=== PATIENT | female | born 1975 | race Caucasian/White ===

== ENCOUNTER 2021-12-14 06:46 | Inpatient (IN) | payer OTHER ==
[~2021-12-14] VITALS: Ht 162.6 cm; Wt 193.4 kg
[2021-12-14] MEDS ORDERED: ACETAMINOPHEN 500 MG TAB PO ONE ×3 (07:30→07:34)
[2021-12-14 07:42] LABS: BUN/Creatinine Ratio 25.9; Calcium 8.9 mg/dL (8.5-10.1); Potassium 3.8 mmol/L (3.5-5.1)
[2021-12-14 07:44] LABS: Basophils # (auto) 0 10 ^3/uL (0-0.2); Basophils % (auto) 0.5 % (0.0-2.0); Eosinophils # (auto) 0.3 10 ^3/uL (0-0.8); Eosinophils % (auto) 3.1 % (0.0-7.0); Hematocrit 36.2 % (36.0-46.0); Lymphocytes # (auto) 2.6 10 ^3/uL (0.4-5.4); Lymphocytes % (auto) 28.1 % (10.0-50.0); Mean Corpuscular Hgb Conc. 35.9 g/dL (32.0-36.0); Mean Corpuscular Volume 83.5 fL (80.0-100.0); Monocytes # (auto) 0.7 10 ^3/uL (0-1.3); Monocytes % (auto) 7.5 % (0.0-12.0); Neutrophils # (auto) 5.6 10 ^3/uL (1.6-8.6); Neutrophils % (auto) 60.8 % (37.0-80.0); Nucleated Red Blood Cells % 0.1 %; Red Blood Cells 4.34 10^6/uL (4.0-5.20); Red Cell Distribution Width 13.2 % (11.8-14.3); White Blood Cell 9.3 10^3/uL (4.4-10.8)
[2021-12-14 08:03] LABS: Urine Bacteria NONE SEEN /hpf (None Seen); Urine Blood 3+ /uL (Negative); Urine Mucus FEW (None Seen); Urine Specific Gravity 1.025 (1.001-1.035); Urine WBC 20 /hpf (0 - 5)
[2021-12-14 08:25] LABS: INR 0.96 (0.9-1.15)
[2021-12-14] MEDS ORDERED: SODIUM CHLORIDE 0.9% 1,000 ML IV ONE (10:15)
[2021-12-14] MEDS ORDERED: cefTRIAXone 1GM/50ML D5W 50 ML IV ONE ×2 (10:53→11:00)
[2021-12-14] MEDS ORDERED: ceFAZolin 1GM/50ML 50 ML IV ONE ×2 (12:11→13:00)
[2021-12-14] MEDS ORDERED: NITROGLYCERIN 0.4 MG SL TAB SL PRN (13:00)
[2021-12-14] MEDS ORDERED: ACETAMINOPHEN 500 MG TAB PO PRN (13:00)
[2021-12-14] MEDS ORDERED: MORPHINE SULFATE INJ 2 MG/ml SYRG IV PRN (13:00)
[2021-12-14] MEDS ORDERED: MEPERIDINE HCL (50 MG/ML) 1 ML VIAL ONE (13:06)
[2021-12-14] MEDS ORDERED: fentaNYL CITRATE 100 MCG/2 ML VL ONE ×2 (13:06→13:56)
[2021-12-14] MEDS ORDERED: MIDAZOLAM HCL 2MG/2ML 2ml VIAL (1mg/ml) ONE (13:06)
[2021-12-14] MEDS ORDERED: MIDAZOLAM HCL 2MG/2ML 2ml VIAL (1mg/ml) IV PRN (13:30)
[2021-12-14] MEDS ORDERED: LABETALOL HCL 5 MG/ML 4ML SYRINGE IV PRN (13:30)
[2021-12-14] MEDS ORDERED: ONDANSETRON HCL 4 MG/2 ML VIAL IV PRN (13:30)
[2021-12-14] MEDS ORDERED: METOCLOPRAMIDE HCL 5MG/ml INJ 2ml VIAL IV PRN (13:30)
[2021-12-14] MEDS ORDERED: MORPHINE SULFATE 4 MG/ML SYR/VIAL IV PRN (13:30)
[2021-12-14] MEDS ORDERED: ePHEDrine SULFATE 50 MG/ML AMP IV PRN (13:30)
[2021-12-14] MEDS ORDERED: KETOROLAC TROMETH 30 MG/ML 1ML VIAL IV ONE (13:30)
[2021-12-14] MEDS ORDERED: ROCURONIUM 10MG/ML 10ML VIAL IV ONE (13:32)
[2021-12-14] MEDS ORDERED: PROPOFOL 10 MG/ML 20 ML IV ONE (13:32)
[2021-12-14] MEDS ORDERED: DexAMETHasone SOD PHOS 10MG/1ML VIAL INJ ONE (13:32)
[2021-12-14] MEDS ORDERED: ONDANSETRON HCL 4 MG/2 ML VIAL ONE (13:32)
[2021-12-14] MEDS: HYDROmorphone HCL 2 MG/ML VL/or syr IV PRN ×2 (15:15→15:28)
[2021-12-14] MEDS ORDERED: IBUP400T22 PO (16:36)
[2021-12-14 16:46] VITALS: BP 152/77
[2021-12-14] MEDS: MORPHINE SULFATE 4 MG/ML SYR/VIAL IV PRN ×3 (18:34→23:29)
[2021-12-14 22:00] VITALS: BP_SYST 104; BP_SYST 108; BP_DIAS 61; BP_DIAS 64
[2021-12-15 05:00] VITALS: BP 135/67
[2021-12-15] MEDS: MORPHINE SULFATE 4 MG/ML SYR/VIAL IV PRN (06:23)
[2021-12-15 06:42] LABS: Basophils # (auto) 0 10 ^3/uL (0-0.2); Basophils % (auto) 0.1 % (0.0-2.0); Eosinophils # (auto) 0 10 ^3/uL (0-0.8); Hematocrit 30.9 % (36.0-46.0); Hemoglobin 10.6 g/dL (12.2-16.2); Lymphocytes # (auto) 1.2 10 ^3/uL (0.4-5.4); Lymphocytes % (auto) 11.4 % (10.0-50.0); Mean Corpuscular Hemoglobin 28.9 pg (28.0-32.0); Mean Corpuscular Hgb Conc. 34.2 g/dL (32.0-36.0); Mean Corpuscular Volume 84.5 fL (80.0-100.0); Monocytes # (auto) 0.6 10 ^3/uL (0-1.3); Monocytes % (auto) 5.8 % (0.0-12.0); Neutrophils # (auto) 8.5 10 ^3/uL (1.6-8.6); Neutrophils % (auto) 82.7 % (37.0-80.0); Red Blood Cells 3.66 10^6/uL (4.0-5.20); Red Cell Distribution Width 13.1 % (11.8-14.3); White Blood Cell 10.3 10^3/uL (4.4-10.8)
[2021-12-15] MEDS ORDERED: CEPH-509 PO (08:02)
[2021-12-15] MEDS ORDERED: HYDR-4902 PO (08:02)
[2021-12-15] MEDS ORDERED: IBUP800T27 PO (08:02)
[2021-12-15] MEDS ORDERED: KETOROLAC TROMETH 30 MG/ML 1ML VIAL IV ONE (08:45)
[2021-12-15 09:46] VITALS: BP 128/69
== END 2021-12-15 10:30 | disposition home or self-care (01) | DRG 819 ==
LOC: ER 06:46 → OVERFLOW 12:54 → EAST 16:07
PROVIDERS: ADMIT Obstetrics & Gynecology; ATTEND Obstetrics & Gynecology
PROC: 0UB60ZZ Excision of Left Fallopian Tube, Open Approach (ICD-10-PCS; 2021-12-14)
PROC: 10T20ZZ Resection of Products of Conception, Ectopic, Open Approach (ICD-10-PCS; principal; 2021-12-14 13:09)
DX: O00.90 Unspecified ectopic pregnancy without intrauterine pregnancy (principal)
CPT/HCPCS: 36415; 76801; 76817; 80048; 81001; 84702; 85025; 85610; 86850; 86900; 86901; 96365; G0378; J0690; J0696; J1100; J1885; J2250; J2405; J2704; J3490

== ENCOUNTER 2021-12-22 21:18 | Emergency (ER) | payer OTHER ==
[~2021-12-22] VITALS: Ht 162.6 cm; Wt 78.0 kg
[~2021-12-22 21:18] MED LIST: CEPH-509 PO; HYDR-4902 PO; IBUP400T22 PO; IBUP800T27 PO
[2021-12-22 22:15] LABS: Urine Bacteria FEW /hpf (None Seen); Urine Blood TRACE /uL (Negative); Urine Specific Gravity 1.011 (1.001-1.035); Urine WBC 1 /hpf (0 - 5)
[2021-12-22 23:44] LABS: Basophils # (auto) 0.1 10 ^3/uL (0-0.2); Basophils % (auto) 0.7 % (0.0-2.0); Eosinophils # (auto) 0.4 10 ^3/uL (0-0.8); Eosinophils % (auto) 3.4 % (0.0-7.0); Hematocrit 33.6 % (36.0-46.0); Hemoglobin 11.5 g/dL (12.2-16.2); Lymphocytes # (auto) 3.9 10 ^3/uL (0.4-5.4); Lymphocytes % (auto) 33.6 % (10.0-50.0); Mean Corpuscular Hemoglobin 28.4 pg (28.0-32.0); Mean Corpuscular Hgb Conc. 34.3 g/dL (32.0-36.0); Mean Corpuscular Volume 82.9 fL (80.0-100.0); Monocytes # (auto) 0.7 10 ^3/uL (0-1.3); Monocytes % (auto) 6.1 % (0.0-12.0); Neutrophils # (auto) 6.4 10 ^3/uL (1.6-8.6); Neutrophils % (auto) 56.2 % (37.0-80.0); Red Blood Cells 4.05 10^6/uL (4.0-5.20); Red Cell Distribution Width 12.8 % (11.8-14.3); White Blood Cell 11.5 10^3/uL (4.4-10.8)
[2021-12-23 00:04] LABS: Calcium 9.3 mg/dL (8.5-10.1); Potassium 4.3 mmol/L (3.5-5.1)
[2021-12-23 00:08] LABS: Albumin 3.6 g/dL (3.4-5.0); BUN/Creatinine Ratio 28.4
[2021-12-23 00:28] LABS: Bilirubin, Total 0.2 mg/dL (0.2-1.0); Total Protein 7.1 g/dL (6.4-8.2)
[2021-12-23] MEDS ORDERED: MORPHINE SULFATE 4 MG/ML SYR/VIAL IM ONE (04:30)
[2021-12-23] MEDS ORDERED: HYDR-4798 PO (05:38)
[2021-12-23 06:06] VITALS: BP 134/47
== END 2021-12-23 06:17 | disposition home or self-care (01) ==
LOC: ER 21:18
DX: R10.9 Unspecified abdominal pain (principal)
CPT/HCPCS: 36415; 74176; 80053; 81001; 85025; 96372; 99284; J2270